=== PATIENT | male | born 1950 | race Caucasian/White ===

== ENCOUNTER 2019-03-05 08:17 | Emergency (ER) | payer MEDICARE, OTHER ==
[2019-03-05 08:30] VITALS: BP 149/95; PULSE 100; O2SAT 99
[2019-03-05] MEDS ORDERED: XYLOCAINE 1% HCL 20 ML MDV IJ ONE (08:37)
[2019-03-05] MEDS ORDERED: Adacel Vial IM ONE ×2 (08:38→08:43)
[2019-03-05] MEDS ORDERED: XYLOCAINE 1% HCL 20 ML MDV ONE (08:44)
--- NOTE | 2019-03-05 08:45 | ERPHSYRPT ---
- History of Present Illness Time Seen by Provider: 03/05/19 08:23 Source: patient Exam Limitations: no limitations Patient Subjective Stated Complaint: Pt states "I was going to take my grandson fishing and I slipped and got a hook stuck in my middle finger." Triage Nursing Assessment: Pt presented alert and oriented X 3, skin pwd Pt ambulates with an uprigth steady gait, able to speak in clear full sentences. Pt has fish hook in his left second digit. Physician History: Pt states, a fishhook accidentally stuck in his left middle finger about half hour ago. He denies other injury or complaints, his tetanus status is uncertain. Occurred: just prior to arrival Method of Injury: other (foreign body: fishhook) Quality: constant Severity of Pain-Max: mild Severity of Pain-Current: mild Extremities Pain Location: 3rd finger: left Modifying Factors: Improves With: nothing Associated Symptoms: none Allergies/Adverse Reactions: No Known Drug Allergies Allergy (Unverified 03/05/19 08:30) Home Medications: Apixaban [Eliquis] 5 mg PO DAILY 03/05/19 [History] Fluticasone/Umeclidin/Vilanter [Trelegy Ellipta 100-62.5-25] 1 tab PO DAILY [History] Furosemide 40 mg PO DAILY 03/05/19 [History] Methimazole 10 mg PO DAILY 03/05/19 [History] Metoprolol Tartrate 50 mg PO DAILY 03/05/19 [History] Potassium Chloride 10 meq PO DAILY 03/05/19 [History] Hx Tetanus, Diphtheria Vaccination/Date Given: No Hx Influenza Vaccination/Date Given: Yes Hx Pneumococcal Vaccination/Date Given: No Immunizations Up to Date: Yes - Review of Systems Constitutional: No Symptoms Respiratory: No Symptoms Cardiac: No Symptoms Abdominal/Gastrointestinal: No Symptoms Musculoskeletal: Other (fishhook in left middle finger) All Other Systems: Reviewed and Negative - Past Medical History Pertinent Past Medical History: Yes Neurological History: No Pertinent History ENT History: No Pertinent History Cardiac History: Hypertension, Other Respiratory History: No Pertinent History Endocrine Medical History: No Pertinent History Musculoskeletal History: No Pertinent History GI Medical History: No Pertinent History History: No Pertinent History Psycho-Social History: No Pertinent History Male Reproductive Disorders: No Pertinent History - Past Surgical History Past Surgical History: No - Social History Smoking Status: Never smoker Exposure to second hand smoke: No Drug Use: none Patient Lives Alone: No - Nursing Vital Signs Nursing Vital Signs: Initial Vital Signs Temperature 98.8 F 03/05/19 08:25 Pulse Rate 100 H 03/05/19 08:25 Respiratory Rate 16 03/05/19 08:25 Blood Pressure 149/95 03/05/19 08:25 O2 Sat by Pulse Oximetry 99 03/05/19 08:25 Pain Scale Pain Intensity 0 - Physical Exam General Appearance: no apparent distress Eyes, Ears, Nose, Throat Exam: normal ENT inspection Neck Exam: normal inspection Cardiovascular/Respiratory Exam: chest non-tender, normal breath sounds, heart sounds normal Abdominal Exam: non-tender Hand Exam: soft tissue tenderness (fishhook in the left middle finger end phalanx ulnar aspect, stuck in about 3-4 mm deep. ) Neuro/Tendon Exam: normal sensation, normal motor functions Mental Status Exam: alert, oriented x 3 Skin Exam: normal color, warm, dry SpO2 Interpretation: normal SpO2: 99 O2 Delivery: Room Air Procedures - Additional Procedures Progress: fishhook removed from the left middle finger end phalanx under sterile circumstances after 1.5 ml 1% Lidocaine infiltration with #11 scalpel, bleeding controlled. - Course Nursing assessment & vital signs reviewed: Yes Ordered Tests: Active Orders 24 hr Category Date Time Status Wound Care STAT Care 03/05/19 08:37 Active Medication Summary Discontinued Medications Generic Name Dose Route Start Last Admin Trade Name Freq PRN Reason Stop Dose Admin Diphtheria/Tetanus/Acell Pertussis 0.5 ml 03/05/19 08:38 03/05/19 08:47 Adacel Vial IM 03/05/19 08:39 0.5 ml .ONCE ONE Administration Diphtheria/Tetanus/Acell Pertussis Confirm 03/05/19 08:43 Adacel Vial Administered 03/05/19 08:44 Dose 0.5 ml IM .STK-MED ONE Lidocaine HCl 5 ml 03/05/19 08:37 03/05/19 08:47 Xylocaine 1% Hcl 20 Ml Mdv IJ 03/05/19 08:38 5 ml STAT ONE Administration Lidocaine HCl Confirm 03/05/19 08:44 Xylocaine 1% Hcl 20 Ml Mdv Administered 03/05/19 08:45 Dose 5 ml .ROUTE .STK-MED ONE - Progress Progress: improved Progress Note: 03/05/19 08:43 Pt tolerated procedure well, discharged after band aid dressing, Betadine cleaning, to follow up with his physician in 2-3 days. Counseled pt/family regarding: diagnosis, need for follow-up - Departure Departure Disposition: Home Clinical Impression: Foreign body of finger of left hand Qualifiers: Encounter type: initial encounter Qualified Code(s): S60.459A - Superficial foreign body of unspecified finger, initial encounter Condition: Stable Critical Care Time: No Referrals: [facility]IE [facility] [employer]ENTATIVE [Primary Care Provider] - Instructions: Removal of Foreign Body in Skin Additional Instructions: Keep area clean, wash with Betadine solution daily, and follow up with your physician in 2-3 days, return if severe pain, redness, swelling or fever> 101 F!
== END 2019-03-05 09:07 | disposition home or self-care (01) ==
LOC: ED 08:17
DX: S60.453A Superficial foreign body of left middle finger, initial encounter (principal); W01.118A Fall on same level from slipping, tripping and stumbling with subsequent striking against other sharp object, initial encounter; I10 Essential (primary) hypertension; Z79.01 Long term (current) use of anticoagulants
CPT/HCPCS: 10120; 90471; 90715; 99283